=== PATIENT | male | born 1955 | race Caucasian/White ===

== ENCOUNTER → 2023-11-15 | Outpatient (CLI) | payer BC, SELFPAY ==
[2023-11-15 17:50] LABS: Absolute Lymphocyte Count 1.99 X10^3/uL (0.83-4.51); Absolute Neutrophil Count 2.5 X10^3/uL (2.0-7.7); Basophil# 0.07 X10^3/uL; Basophil% 1.3 % (0-1); Eosinophil# 0.22 X10^3/uL; Eosinophils% 4.2 % (0-5); Hematocrit 44.3 % (40-54); Hemoglobin 15.1 g/dL (13.0-16.5); Lymphocyte # 1.99 X10^3/ul (0.83-4.51); Lymphocyte % 38.1 % (19-41); Mean Corp Hgb Conc 34.1 g/dL (32-36); Mean Corpuscular Hgb 30.9 pg (27.0-32.0); Mean Corpuscular Volume 90.6 fL (80-94); Mean Platelet Vol. 10.3 fl (6.2-12.0); Monocyte# 0.42 X10^3/uL; NRBC Flagged by Analyzer 0 % (0-5); Neutrophil # 2.51 X10^3/uL (2.7-7.7); Neutrophil % 48.2 % (47-70); Platelet Count 194 K/mm3 (150-450); RBC Distribution Width CV 13.1 % (11.6-14.6); RBC Distribution Width SD 42.7 fl (35.1-43.9); Red Blood Count 4.89 M/mm3 (4.6-6.2); White Blood Count 5.2 K/mm3 (4.4-11.0)
[2023-11-15 18:28] LABS: AST(SGOT) 27 U/L (15-37); Alanine Aminotransfer ALT/SGPT 39 U/L (16-61); Albumin, Serum 3.8 g/dL (3.2-5.0); Alkaline Phosphatase 69 U/L (45-117); Anion Gap 5 (5-15); BUN 17 mg/dL (7-18); BUN/Creat Ratio 17.5 RATIO (10-20); Chloride 106 mmol/L (98-107); Cholesterol 142 mg/dL (200); Creatinine, Serum 0.97 mg/dL (0.70-1.30); EST Glomerular Filtration Rate 82 mL/min (>60); Est Glom Filt Rate - Afr Amer 99 mL/min (>60); Globulin 3.8 g/dL (2.2-4.2); Glucose 94 mg/dL (74-106); High Density Lipoprotein 62 mg/dL; Potassium 3.8 mmol/L (3.5-5.1); Protein, Total 7.6 g/dL (6.4-8.2); Sodium Level 139 mmol/L (136-145); Thyroid Stim Hormone (TSH) 3.34 uIU/mL (0.358-3.74); Triglycerides 50 mg/dL; Very Low Density Lipoprotein 10 mg/dL (5-40)
== END | disposition home or self-care (01) ==
LOC: MFPLAB 15:46
PROVIDERS: PCP Family Medicine; Visit Provider Family Medicine
DX: I10 Essential (primary) hypertension (principal)
CPT/HCPCS: 36415; 80050; 80053; 80061; 84443; 85025

== ENCOUNTER → 2023-12-20 | Outpatient (CLI) | payer BC, SELFPAY ==
--- NOTE | 2023-12-20 12:58 | ECHOD_ITS ---
Reason For Study: MURMUR Procedure This was a 2D Doppler, Color Flow transthoracic echocardiogram. Exam performed in department. Left Ventricle Normal LV size. Left ventricular systolic function is normal. The estimated ejection fraction is 70 %. No regional wall motion abnormalities noted. Right Ventricle Normal RV size. Normal systolic function. Atria The left atrium is mildly enlarged. Normal right atrium. Mitral Valve Normal mitral valve. Tricuspid Valve Normal tricuspid valve. Aortic Valve Normal aortic valve. Trisinus/trileaflet aortic valve. Pulmonic Valve Normal pulmonic valve. Great Vessels Normal aortic root. The pulmonary artery is normal size. Inferior vena cava collapse with respiration. Pericardium/Pleural No pericardial effusion. MMode/2D Measurements & Calculations LVIDd: 5.3 cm IVSd: 1.0 cm Ao root diam: 3.6 cm LVIDs: 2.7 cm LVPWd: 1.00 cm RVDd: 3.3 cm FS: 48.0 % LAV(MOD-bp): 74.8 ml LVAd ap4: 35.0 cm2 LVAd ap2: 31.4 cm2 LAV(MOD-bp) Indexed: 38.4 ml/m2 LVLd ap4: 7.7 cm LVLd ap2: 7.9 cm LAV(MOD-sp2): 74.2 ml EDV(MOD-sp4): 129.9 ml EDV(MOD-sp2): 103.3 ml LAV(MOD-sp4): 75.6 ml EDV(sp4-el): 135.2 ml EDV(sp2-el): 105.3 ml LVAs ap4: 17.3 cm2 LVAs ap2: 15.3 cm2 LVLs ap4: 6.6 cm LVLs ap2: 6.4 cm ESV(MOD-sp4): 39.7 ml ESV(MOD-sp2): 31.6 ml ESV(sp4-el): 38.2 ml ESV(sp2-el): 31.1 ml EF(MOD-sp4): 69.4 % EF(MOD-sp2): 69.4 % EF(sp4-el): 71.7 % SV(MOD-sp4): 90.2 ml SV(MOD-sp2): 71.7 ml SV(sp4-el): 97.0 ml LA dimension(2D): 4.2 cm LA A4 area: 22.7 cm2 RA A4 area: 15.3 cm2 TAPSE: 2.0 cm Time Measurements MV dec time: 0.19 sec Doppler Measurements & Calculations MV E max vinnie: 122.3 cm/sec Lat Peak E' Vinnie: 11.7 cm/sec Med Peak E' Vinnie: 8.8 cm/sec MV A max vinnie: 80.7 cm/sec E/E' lat: 10.4 E/E' med: 13.9 MV E/A: 1.5 MV V2 max: 122.3 cm/sec MV P1/2t max vinnie: 133.0 cm/sec Ao V2 max: 139.8 cm/sec MV max P.0 mmHg MV P1/2t: 57.8 msec Ao max P.8 mmHg MV V2 mean: 68.0 cm/sec MV dec slope: 674.5 cm/sec2 Ao V2 mean: 90.4 cm/sec MV mean P.1 mmHg Ao mean P.8 mmHg MV V2 VTI: 30.9 cm MVA(P1/2t): 3.8 cm2 Ao V2 VTI: 26.9 cm AV (velocity ratio): 0.81 LV V1 max: 132.4 cm/sec PA V2 max: 118.7 cm/sec LV V1 max P.0 mmHg PA V2 mean: 89.9 cm/sec LV V1 mean P.3 mmHg LV V1 mean: 83.0 cm/sec LV V1 VTI: 21.9 cm ECHO/Echo Complete Interpretation Summary Normal LV size. Left ventricular systolic function is normal. The estimated ejection fraction is 70 %. The left atrium is mildly enlarged. Structurally normal valves. Ordering Physician: Andrez Delatorre Referring Physician: Andrez Delatorre Performed By: Netta Schmidt, CITLALYCS, RVT
== END | disposition home or self-care (01) ==
LOC: CVS 12:57
PROVIDERS: PCP Family Medicine; Referring Provider Family Medicine; Visit Provider Family Medicine
DX: R01.1 Cardiac murmur, unspecified (principal)
CPT/HCPCS: 93306